=== PATIENT | male | born 1985 | race Caucasian/White ===

== ENCOUNTER 2016-04-21 01:38 | Emergency (ER) | payer OTHER ==
[~2016-04-21] VITALS: Ht 175.3 cm; Wt 110.5 kg
[2016-04-21 01:40] VITALS: TEMP 36.9; Ht 175.3 cm; Wt 110.5 kg
[2016-04-21 02:58] VITALS: BP 149/101; PULSE 75; O2SAT 96
--- NOTE | 2016-04-21 04:41 | EMERGENCY ROOM VISIT NOTE ---
ED Visit Note First contact with patient: 01:47 CHIEF COMPLAINT: knee pain HISTORY OF PRESENT ILLNESS: This 31 yo patient presents to the emergency department after sustaining an injury to the left knee while at work tonight when he was twisting and rotating. The patient denies any other injuries besides their knee. The patient denies swelling or bruising. There is pain medial aspect. They rate the pain as throbbing and 5/10. The patient states they are not to walk on it. No numbness or tingling. + previous injuries to this knee. No ankle, foot or hip pain. REVIEW OF SYSTEMS: A 6 system review of systems was completed with positives and pertinent negatives listed in the HPI. ALLERGIES: None MEDICATIONS: None PMH: knee surgery SOCIAL HISTORY: No drug use PHYSICAL EXAM: Vital Signs: Reviewed Nurse's notes, vital signs stable. GENERAL : Pleasant male, no acute distress, but appears in pain, well-developed, well- nourished. MENTAL STATUS: Alert, oriented to person place and time, and cooperative. MUSCULOSKELETAL: The left knee is not swollen. There is no ecchymosis. There is no joint effusion present. The patient is tender medial aspect. There is no joint line tenderness. The patella not subluxate. Range of motion is intact but painful. Strength of the quads and hamstrings is 4/5. Nelly's is negative. Lupe's and Anterior Drawer tests are negative. There is pain with with varus and valgus stressing. The foot and toes are warm and well-perfused. Dorsalis pedis pulse 2+. Sensation to pain and light touch is intact. Capillary refill less than 2 seconds. EMERGENCY DEPARTMENT COURSE: I examined the patient. X-rays of the left knee were reviewed by myself and attending and reveal no obvious fracture, prior surgery noted. The patient was placed in a knee immobilizer under my direction and the position was satisfactory. The patient was instructed on the use of crutches. Patient was advised to follow-up with occupational health tomorrow here in the ER sooner for severe pain, numbness, tingling, worsening signs or symptoms or as needed. The patient was discharged home in good condition. DIAGNOSIS: Left knee injury, work-related injury DISCHARGE INSTRUCTIONS: As below Current/Historical Medications No Active Prescriptions or Reported Meds Allergies Coded Allergies: No Known Allergies (Unverified , 04/21/16) Vital Signs Date Time Temp Pulse Resp B/P Pulse Ox O2 Delivery O2 Flow Rate FiO2 04/21/16 02:58 75 20 149/101 96 04/21/16 01:40 36.9 91 20 145/89 99 Departure Information Impression Primary Impression: Injury of left knee Additional Impression: Work related injury Dispostion Home / Self-Care Condition GOOD Prescriptions No Active Prescriptions or Reported Meds Forms HOME CARE DOCUMENTATION FORM, Work Instructions, Return To Work: 2 days IMPORTANT VISIT INFORMATION Patient Instructions [facility], ED Sprain Knee Additional Instructions Ibuprofen(Motrin, Advil) may be used for fever or pain. Use 600mg every six hours as needed. Take with food. Avoid using more than 2400mg in a 24 hour period. Do not use 2400mg per day for more than three consecutive days without physician direction. Prolonged inappropriate use can lead to stomach upset or ulcers. This medication can be taken if you need to drive, work, or perform activities which may be dangerous when taking narcotic pain medication. (AND/OR) Acetaminophen(Tylenol) may be used for fever or pain. Use 1000mg every six hours as needed. Avoid using more than 3000mg in a 24 hour period. This medication can be taken if you need to drive, work, or perform activities which may be dangerous when taking narcotic pain medication. Ice compresses for 20 minutes at a time four times daily for 2-3 days. Use the crutches as instructed. Rest and elevate your injury. Wear knee immobilizer when up and about. Do not have it so tight that you cannot feel your foot. Continue current medications. Return to the ER immediately for any numbness, tingling, severe pain, extreme swelling in the extremity or as needed. Call occupational health tomorrow to arrange follow up for your injury. Work Instructions Return To Work: 2 days
--- NOTE | 2016-04-21 06:44 | DIAGNOSTIC IMAGING REPORT ---
LEFT KNEE 3 VIEWS CLINICAL HISTORY: Left knee pain status post trauma COMPARISON: None. DISCUSSION: Postsurgical changes are visualized. There are mild degenerative changes. No acute fractures are evident. There are no dislocations. IMPRESSION: Postsurgical change. No acute fractures. Electronically signed by: Pj Sung M.D. 04/21/2016 6:42 AM Dictated Date/Time: 04/21/2016 6:41 AM
[2016-04-27] MEDS ORDERED: HYDR-5688 PO (09:52)
== END 2016-04-21 03:00 | disposition home or self-care (01) ==
LOC: C.EDB 01:39 → C.EDA 03:00
DX: S89.92XA Unspecified injury of left lower leg, initial encounter (principal); X50.9XXA Other and unspecified overexertion or strenuous movements or postures, initial encounter; Y99.0 Civilian activity done for income or pay

== ENCOUNTER → 2016-04-23 | Outpatient (CLI) | payer OTHER ==
[~2016-04-23] MED LIST: HYDR-5688 PO
--- NOTE | 2016-04-23 13:37 | DIAGNOSTIC IMAGING REPORT ---
MRI OF THE LEFT KNEE WITHOUT CONTRAST CLINICAL HISTORY: Left knee pain and. Evaluate for meniscal tear. COMPARISON STUDY: Left knee radiographs April 21, 2016. TECHNIQUE: Utilizing a 1.5 Helen magnet and dedicated coil, multiplanar, multiecho imaging of the left knee was performed without intravenous or intraarticular contrast. FINDINGS: Alignment of the left knee is anatomic. There are findings consistent with an ACL reconstruction. There is slight indistinctness of the mid portion of the graft although the graft appears intact. There is no evidence for a full-thickness graft tear. The posterior cruciate ligament is intact. There is a small amount of fluid adjacent to the medial collateral ligament although the ligament itself appears intact. The lateral collateral ligament complex is intact. There is a focal area of moderate chondrosis within the lateral femoral condyle which may reflect an old impaction injury. No full-thickness cartilage defect is present. There is a moderate-sized joint effusion. No loose bodies are identified. There is no evidence for fracture or suspicious marrow replacement. There is a large bucket-handle tear of the medial meniscus which involves the near entirety of the meniscus with a large fragment flipped medially and anteriorly. There is a subtle tear of the posterior horn/root junction of the lateral meniscus. IMPRESSION: 1. Findings consistent with ACL reconstruction. Slight indistinctness of the mid portion of the graft although the graft is likely intact. No evidence for a full thickness graft tear. 2. Moderate-sized joint effusion. 3. Extensive bucket-handle tear of the medial meniscus with a large flipped fragment, as described above. 4. Subtle tear of the posterior horn/root junction of the lateral meniscus. 5. Moderate focal chondrosis of the lateral femoral condyle which likely reflects an old impaction injury. 6. Small amount of fluid adjacent to the medial collateral ligament although the ligament appears intact. This could reflect a mild MCL sprain or postsurgical change. Electronically signed by: Johan Villanueva M.D. 04/23/2016 1:36 PM Dictated Date/Time: 04/23/2016 1:23 PM
== END | disposition home or self-care (01) ==
LOC: C.MRIBC 11:49
PROVIDERS: ATTEND Orthopaedic Surgery
DX: M25.462 Effusion, left knee (principal); S83.212A Bucket-handle tear of medial meniscus, current injury, left knee, initial encounter; X58.XXXA Exposure to other specified factors, initial encounter; M94.262 Chondromalacia, left knee; R93.7 Abnormal findings on diagnostic imaging of other parts of musculoskeletal system

== ENCOUNTER → 2016-04-27 | Day surgery (SDC) | payer OTHER ==
[~2016-04-27] MED LIST changes: +ATROPINE SULFATE 0.1 MG/ML 5ML SYR IV PRN; +BUPIVACAINE 0.5 % 5 MG/1 ML MPF 30ML VIAL ONE; +CEFAZOLIN 1000MG/55 ML D5W IV SCH; +CEFAZOLIN SOD 1 GM VIAL ONE; +DEXAMETHASONE SOD INJ 4 MG/ML VIAL IV PRN; +EpHEDrine SULFATE INJ 50 MG/ML AMP IV PRN; +EpINEphrine INJ 1MG/ML AMP 1 MG/ML AMP ONE; +FENTANYL CITRATE INJ 50 MCG/1 ML 2 ML VIAL IV PRN; +FENTANYL CITRATE INJ 50 MCG/1 ML 2 ML VIAL ONE; +KETOROLAC TROMETHAMINE 30 MG/ML VIAL IV. PRN; +KETOROLAC TROMETHAMINE 30 MG/ML VIAL ONE; +LABETALOL HCL IV 5 MG/ML 20ML IV PRN; +LACTATED RINGER'S 1000ML 1,000 ML IV SCH; +LIDOCAINE HCL 2% 2 ML VIAL (20MG/ML) ONE; +METOCLOPRAMIDE HCL INJ 5 MG/ML 2 ML VIAL IV PRN; +MIDAZOLAM HCL 1 MG/ML 2ML VIAL ONE; +MoRPHine SULFATE 10 MG/ML CARP/VIAL IV PRN; +ONDANSETRON INJ 2 MG/ML 2 ML VIAL IV PRN; +ONDANSETRON INJ 2 MG/ML 2 ML VIAL ONE; +OXYCODONE/ACETAMINOPHEN 5-325 TAB PO PRN; +PHENYLEPHRINE 100MCG/ML 5ML SYR IV PRN; +PROPOFOL IV EMULSION 10 MG/ML 20 ML VIAL IV ONE; +ROPIVACAINE 0.5% 5 MG/ML 30 ML VIAL ONE; +SODIUM CHLORIDE 0.9% 1000ML 1,000 ML IV SCH
--- NOTE | 2016-04-27 08:13 | History & Physical Bridge - SC ---
H&P Re-Evaluation Bridge Note: I have examined the patient, reviewed the History & Physical and in the interval since the performance of the History & Physical I have noted the following changes of clinical significance: No changes noted
--- NOTE | 2016-04-27 09:45 | [facility] Post Operative Brief Note ---
Immediate Operative Summary Operative Date Apr 27, 2016. Pre-Operative Diagnosis Left Knee Acute Medial Meniscus Tear Post-Operative Diagnosis Same, BUCKET HANDLE TEAR Procedure(s) Performed Left Knee Arthroscopy, Partial Medial Meniscectomy Surgeon Dr. Andrew Sloan Director Of Maintenance Surgeon(s) Kyree Gunn PA-C Estimated Blood Loss 0 Findings ABOVE Specimens None Anesthesia LMA Complication(s) None Disposition Recovery Room / PACU
--- NOTE | 2016-04-27 09:54 | Discharge Instructions-SurgCtr ---
Discharge Instructions Visit Reason for Visit: Left Knee Acute Mendial Meniscal Tear Discharge Discharge Diagnosis / Problem: SAME ABOVE Discharge Goals Goal(s): Decrease discomfort, Improve function Activity Recommendations Activity Limitations: as noted below Lifting Limitations: gradually increase as tolerated Exercise/Sports Limitations: until after follow-up appointment Shower/Bathe: tomorrow Weightbearing Status: Left weightbearing (as tolerated) Anesthesia . Post Anesthesia Instructions: If you have had General Anesthesia or IV Sedation: * Do not drive today. * Resume driving when surgeon permits. * Do not make important decisions or sign legal documents today. * Call surgeon for: 1. Temperature elevations greater than 101 degrees F. 2. Uncontrollable pain. 3. Excessive bleeding. 4. Persistent nausea and vomiting. 5. Medication intolerance (nausea, vomiting or rash). * For nausea and vomiting use only clear liquids such as: tea, soda, bouillon until nausea subsides, then gradually increase diet as tolerated. * If you have any concerns or questions, call your surgeon's office. If physician is unavailable and it is an emergency, call 911 or go to the nearest emergency room. . Instructions / Follow-Up Instructions / Follow-Up MEDICATIONS: * Resume previous medications unless instructed otherwise by your surgeon. * Always take pain medication on a full stomach or with food to avoid upset stomach. * Do not drink alcohol or drive while taking narcotics. * Ibuprofen or Tylenol may be taken if narcotic not needed. SPECIAL CARE INSTRUCTIONS: __ None _X_ Keep extremity elevated and iced x 48 hours; apply ice 20-30 minutes 8-10 times/day. May remove at night. __ Crutches __ May discard when able __ Brace/Post-op shoe __ 24 hrs/day __ Remove at night _X_ Dressing __ Maintain until seen in office, may shower with plastic over site _X_ Remove dressings in 24-48 hours and then may shower _X_ Cover incisions with band-aids after showering __ Do not remove steri-strips Call physician if chills or temperature rises above 102 degrees or pain unrelieved by prescribed pain medications. Office [phone] Diet Recommendations Home Diet: resume previous diet Procedures Procedures Performed: Left Knee Arthroscopy, Partial Medial Meniscectomy Medical Emergencies . Who to Call and When: Medical Emergencies: If at any time you feel your situation is an emergency, please call 911 immediately. . Non-Emergent Contact Non-Emergency issues call your: Primary Care Provider . . "Provider Documentation" section prepared by Blaze Gunn.
--- NOTE | 2016-04-27 10:31 | Anesthesia Progress Nt - [facility] ---
Anesthesia Post Op Note Date & Time Apr 27, 2016 at 10:30 Vital Signs Pain Intensity: 2 Vital Signs Past 12 Hours Date Time Temp Pulse Resp B/P Pulse Ox O2 Delivery O2 Flow Rate FiO2 04/27/16 10:16 65 19 95 04/27/16 10:16 64 19 04/27/16 10:15 71 18 94 04/27/16 10:15 76 18 04/27/16 10:14 71 14 94 04/27/16 10:14 70 14 04/27/16 10:13 107/66 04/27/16 10:12 36.4 97 Room Air 04/27/16 10:09 72 29 04/27/16 10:09 70 29 04/27/16 10:08 127/83 04/27/16 10:04 64 18 96 04/27/16 10:04 63 18 04/27/16 10:03 109/79 04/27/16 09:59 71 18 97 04/27/16 09:59 68 18 04/27/16 09:58 120/83 04/27/16 09:54 76 18 126/62 96 04/27/16 09:54 75 18 04/27/16 09:49 36.4 68 18 133/74 99 Mask 6 04/27/16 09:49 66 14 04/27/16 09:49 65 14 96 04/27/16 07:30 36.8 67 16 136/62 96 Room Air Notes Mental Status: alert / awake / arousable, participated in evaluation Pt Amnestic to Procedure: Yes Nausea / Vomiting: adequately controlled Pain: adequately controlled Airway Patency, RR, SpO2: stable & adequate BP & HR: stable & adequate Hydration State: stable & adequate Anesthetic Complications: no major complications apparent
[2016-04-27 10:33] VITALS: TEMP 36.5
--- NOTE | 2016-04-27 10:38 | OPERATIVE REPORT ---
DATE OF OPERATION: 04/27/2016 PREOPERATIVE DIAGNOSIS: Bucket handle tear medial meniscus, left knee, status post anterior cruciate ligament reconstruction. POSTOPERATIVE DIAGNOSIS: Same. PROCEDURE: Left knee arthroscopy, partial medial meniscectomy. SURGEON: Dr. Sloan. IGNITION MECHANIC: Blaze Gunn PA-C. ANESTHESIOLOGIST: Dr. Chairez. ANESTHESIA: LMA. DRAINS: None. COMPLICATIONS: None. CONDITION: The patient tolerated the procedure well and returned to recovery room in apparent satisfactory condition. 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 He has had a prior ACL reconstruction, medial meniscus repair done years ago up in [place] and his meniscus now is torn and displaced. Went over treatment options. I thought probably most prudent thing to do would be now go ahead with a partial medial meniscectomy. To re-repair the meniscus that was already repaired before would be difficult. OPERATION AND FINDINGS: PROCEDURE: The patient was taken to the OR at which time he was placed supine on the operating table. He had about a 10 degree flexion contracture in his left knee. He was put to sleep by the anesthesia department. Left leg was examined. His ACL was intact. He came into full extension when he was asleep. Ligamentous leon everything else was fine. Went ahead and prepped and draped in usual sterile fashion. Began arthroscopic examination in the anteromedial and anterolateral portals of his left knee. Immediately he had the buckle handle tear of the medial meniscus was displaced and wedged in the front part of his leg. We reduced it back in place, inspected the knee joint. The ACL had some fibers anteriorly that were frayed, but the main part of the ACL looked to be intact. We went ahead and reduced the meniscus back. We detached it posteriorly first and anteriorly and removed the fragment and took a picture of it. The remaining rim of the meniscus was trimmed back. The articular surfaces looked to be a little scuffed up but overall was okay. Lateral compartment, lateral meniscus were fine, patellofemoral joint was fine also. The knee then was copiously irrigated. All cannulas were removed. Portals were closed with 4-0 nylon sutures. 30 mL of mepivacaine, 10 mL Toradol, and 1 mL epinephrine was placed in the knee joint. Placed a sterile dressing of Xeroform, 4 x 4, ABD, Sof-Rol, and Jackson bandage and returned back to recovery room in apparent satisfactory condition. SURGICAL FINDINGS: Included: 1. Bucket handle tear of the medial meniscus. 2. He had prior ACL reconstruction. I attest to the content of the Intraoperative Record and any orders documented therein. Any exceptions are noted below. LACHELLE
[2016-04-27 10:48] VITALS: BP 134/82; PULSE 65; O2SAT 100
== END | disposition home or self-care (01) ==
LOC: X.SURG 07:06
PROVIDERS: ATTEND Orthopaedic Surgery
DX: S83.212A Bucket-handle tear of medial meniscus, current injury, left knee, initial encounter (principal); W18.40XA Slipping, tripping and stumbling without falling, unspecified, initial encounter; Y99.0 Civilian activity done for income or pay; Y92.238 Other place in hospital as the place of occurrence of the external cause

== ENCOUNTER → 2017-11-22 | Outpatient (CLI) | payer OTHER | END | disposition home or self-care (01) | LOC: C.LABBFT 12:06 | PROVIDERS: ATTEND Internal Medicine | DX: Z00.00 Encounter for general adult medical examination without abnormal findings (principal); Z13.220 Encounter for screening for lipoid disorders; Z13.1 Encounter for screening for diabetes mellitus; E78.5 Hyperlipidemia, unspecified ==